=== PATIENT | female | born 1995 | race Caucasian/White ===

== ENCOUNTER 2021-04-16 11:04 | Emergency (ER) | payer BC, SELFPAY ==
[2021-04-16 11:07] VITALS: BP 0/0; PULSE 0; RESP 0; TEMP -17.7; TEMP 0
== END 2021-04-16 11:12 | disposition left against medical advice (07) ==
LOC: UTC 11:06
PROVIDERS: Emergency Provider Nurse Practitioner; PCP Nurse Practitioner Family
DX: Z53.21 Procedure and treatment not carried out due to patient leaving prior to being seen by health care provider (principal)

== ENCOUNTER 2021-04-16 16:37 | Emergency (ER) | payer BC, SELFPAY ==
[2021-04-16 17:55] VITALS: BP 129/70; PULSE 68; RESP 19; TEMP 36.8; O2SAT 98; BMI 17.4
--- NOTE | 2021-04-16 18:10 | HMH.EDUTC ---
[facility] [place] Disposition Clinical Impression: Qualifiers: Weeks of gestation: unspecified Qualified Code(s): Z34.90 - Encounter for supervision of normal , unspecified, unspecified trimester Disposition: Home, Self-Care Condition on Discharge: Good Instructions: Human Chorionic Gonadotropin, Diet Additional Instructions: Make sure to follow up for your lab test results with your OBGYN Return if needed Straight to ER if any life threatening symptoms Repeat labs per OBGYN request Referrals: Mona Liriano [Primary Care Provider] - As needed Time of Disposition: 18:49 Medical Decision Making - Yordy Inquiry Pt receiving controlled substance: No Yordy was queried for this patient: No Vital Signs: 04/16/21 17:55 04/16/21 18:46 Temperature 98.3 F 98.3 F Temperature Source Oral Pulse Rate 68 Pulse Rate [Right Brachial] 68 Respiratory Rate 19 19 Blood Pressure 129/70 Blood Pressure [Right Arm] 129/70 Blood Pressure Mean [Right Arm] 89 Blood Pressure Source [Right Arm] Automatic Cuff Blood Pressure Position [Right Arm] Sitting 02 Sat by Pulse Oximetry 98 Oxygen Delivery Method Room Air - Lab Data Lab results reviewed: Yes: I reviewed the patient's lab results. Lab Results 04/16/21 17:54: HCG, Quant 154 H [facility] [place] HPI - General Stated complaint: HCG level check Time Seen by Provider: 04/16/21 18:10 Mode of Arrival: Ambulatory Source of Information: Patient Limitations: No Limitations Description of Symptoms (Recalled from Triage Doc. by RN): PATIENT REQUESTING HCG QUANTITATIVE BLOODWORK HEENT Symptoms (Recalled from RN notes): No Resp Symptoms (Recalled from RN notes): No Skin Symptoms (Recalled from RN notes): No MS Symptoms (Recalled from RN notes): No Functional Status (Recalled from RN notes): WNL - History of Present Illness Provider Complaint: Patient states that she is about 5 weeks OB and she was requesting to have HCG Quant done States that she had spoken with her OB and wanted to have her Quant done and she was unable to make it to the OBGYN clinic before it closed so she came in here to have it done States that she is not having any spotting or pain just wanted to be seen and have Quant drawn and she would follow up with OBGYN for further treatment - Related Data Allergies Allergy/AdvReac Type Severity Reaction Status Date / Time amoxicillin Allergy Verified 02/26/21 15:03 Penicillins Allergy Verified 04/16/21 18:07 - Worker's Comp Is this a Worker's Comp case?: No [facility] History - Hepatitis A Screen Drug use history?: No High risk sexual behaviors?: No History of sexually transmitted infection?: No Currently employed?: No Childcare worker?: No Do you have indoor plumbing?: Yes Do you have electricity?: Yes Attestation statement:: This patient has been screened for Hepatitis A risk factors. I have reviewed the patient's past medical history: Yes Other Surgeries: Yes: No Previous Surgery Fractures: No - Social History Smoking Status: Current every day smoker Tobacco Type: cigarettes Alcohol Intake: current Alcohol Intake Frequency:: holidays/special occasions only Substance Use Type: denies use Occupational Status: employed Housing: house Household Members: family Family Hx:: Hypertension, Diabetes, Cancer ROS Obtained: Yes All systems reviewed & no additional complaints, Yes Systems reviewed as appropriate & no additional complaints - Constitutional Constitutional: Reports system reviewed and no additional complaints, except as docu, Denies body ache, Denies chills, Denies fever(s) - ENT Ears, Nose, Mouth, and Throat: Reports system reviewed and no additional complaints, except as docu - Cardiovascular Cardiovascular: Reports system reviewed and no additional complaints, except as docu, Denies chest pain - Respiratory Respiratory: Reports system reviewed and no additional complaints, except as docu - Gastrointestinal Gastrointe
[2021-04-16 18:46] VITALS: BP 129/70; PULSE 68; RESP 19; TEMP 36.8; O2SAT 98
[2021-04-16 19:09] LABS: HCG,Quantitative 154 mIU/ml (0-5.42)
== END 2021-04-16 18:52 | disposition home or self-care (01) ==
PROVIDERS: Emergency Provider Nurse Practitioner; PCP Nurse Practitioner Family
DX: Z34.90 Encounter for supervision of normal pregnancy, unspecified, unspecified trimester (principal); F17.210 Nicotine dependence, cigarettes, uncomplicated; Z88.0 Allergy status to penicillin
CPT/HCPCS: 84702; 99202; G0463